=== PATIENT | male | born 1990 | race Caucasian/White ===

== ENCOUNTER 2022-10-30 18:55 | Emergency (ER) | payer OTHER ==
[~2022-10-30] VITALS: Ht 175.3 cm; Wt 85.3 kg
[2022-10-30 19:23] VITALS: BP 145/93
[2022-10-30] MEDS ORDERED: Prednisone20 MG PO (20:11)
== END 2022-10-30 20:23 | disposition home or self-care (01) ==
LOC: ER 18:55
DX: L23.7 Allergic contact dermatitis due to plants, except food (principal)
CPT/HCPCS: J7512